=== PATIENT | male | born 1955 | race Caucasian/White ===

== ENCOUNTER → 2020-08-31 | Day surgery (SDC) | payer OTHER ==
[~2020-08-31] VITALS: Ht 185.4 cm; Wt 104.3 kg
[~2020-08-31] MED LIST: ALLEGRA ALLERG180 MG PO; AMLODIPINE BESY10 MG PO; B COMPLEX1 EACH PO; CELEXA40 MG PO; CLARITIN10 M2 PO; EFFEXOR XR150 MG PO; FISH OIL CONCE1 EAC1 PO; GLUCOPHAGE500 MG PO; HUMALOG100 UNIT/1 SC; JANUVIA100 MG PO; JARDIANCE25 MG PO; LIPITOR40 MG PO; METFORMIN HCL500 MG PO; OMEPRAZOLE40 MG PO; PANTOPRAZOLE SO40 MG PO; PRAVASTATIN SOD40 MG PO; PROTONIX 40MG T40 MG PO; SINGULAIR10 MG PO; TRIGLIDE160 MG PO; VIT C
[2020-08-31 10:02] LABS: HCT 40.8 % (42.0-52.0); HGB 12.9 g/dl (13.2-18.0); MCH 28.5 pg (25.0-31.0); MCHC 31.6 g/dL (32.0-36.0); MCV 90.1 fL (78.0-100.0); MPV 10.6 fL (6.0-9.5); RBC 4.53 M/uL (4.70-6.00); WBC 5.8 K/uL (4.0-10.5)
[2020-08-31 10:18] LABS: ALBUMIN 3.9 g/dL (3.4-5.0); BILIRUBIN - TOTAL 0.7 mg/dL (0.2-1.0); BUN/CREAT RATIO (CALC) 17.3 RATIO; CREATININE 0.52 mg/dL (0.67-1.17); GLOBULIN (CALCULATION) 4.6 g/dL; TOTAL PROTEIN 8.5 g/dL (6.4-8.2)
== END | disposition home or self-care (01) ==
LOC: FAS 09:23
PROVIDERS: Surgery
DX: K57.31 Diverticulosis of large intestine without perforation or abscess with bleeding (principal); K42.9 Umbilical hernia without obstruction or gangrene; K21.9 Gastro-esophageal reflux disease without esophagitis; E11.9 Type 2 diabetes mellitus without complications; I10 Essential (primary) hypertension; E78.00 Pure hypercholesterolemia, unspecified; F10.10 Alcohol abuse, uncomplicated; F41.9 Anxiety disorder, unspecified; F32.9 Major depressive disorder, single episode, unspecified; G47.30 Sleep apnea, unspecified; Z99.89 Dependence on other enabling machines and devices; Z86.010 Personal history of colon polyps; Z79.84 Long term (current) use of oral hypoglycemic drugs; Z79.899 Other long term (current) drug therapy
CPT/HCPCS: 36415; 80053; J2250; J2704; J7120